=== PATIENT | male | born 1990 | race African-American/Black ===

== ENCOUNTER 2019-11-19 21:00 | Emergency (ER) | payer OTHER ==
--- NOTE | 2019-11-19 21:08 | PDOC ---
History of Present Illness - General Stated Complaint: COUGH Time Seen by Provider: 11/19/19 21:01 History Source: Patient Exam Limitations: No Limitations - History of Present Illness Initial Comments: 11/19/19 21:16 Pt is a 29 y/o male who presents to the ED with a cough. He has a family and wanted to be tested for COVID-19 despite having no known sick contacts, no potential COVID-19 contacts and he is afebrile currently. The patient has had no recent travel. The patient states that he does not think that he has COVID-19 and believes that he is low risk. He states he had a low grade fever at home of 100.4 at home. He has not taken anything for his symptoms. The patient denies any past medical history of allergies to medication. Past History - Past Medical History Allergies/Adverse Reactions: Allergies Allergy/AdvReac Type Severity Reaction Status Date / Time No Known Allergies Allergy Verified 11/19/19 21:06 Home Medications: Ambulatory Orders Oxycodone HCl/Acetaminophen [Percocet 5-325 mg Tablet] 1 - 2 combo PO Q4H PRN #20 tablet 02/21/15 Penicillin V Potassium [Pen Vee K -] 500 mg PO TID #21 tablet 02/21/15 Amoxicillin - [Amoxicillin 500mg Capsule -] 500 mg PO TID #21 capsule 03/15/15 Naproxen [Naprosyn -] 500 mg PO BID #14 tablet 03/15/15 - Immunization History Immunization Up to Date: Yes - Psycho Social/Smoking Cessation Hx Smoking History: Current every day smoker Have you smoked in the past 12 months: Yes Number of Cigarettes Smoked Daily: 0 Cigars Per Day: 3 Hx Alcohol Use: Yes (socially) Substance Use Type: Alcohol Review of Systems - Review of Systems Comments:: 11/19/19 21:14 - Review of Systems Able to Perform ROS?: Yes Constitutional: No: Fever, Chills, Loss of Appetite, Night Sweats, Weakness HEENTM: No: Eye Pain, Vision changes, Ear Pain, Throat Pain, Throat Swelling, Mouth Pain, Difficulty Swallowing Respiratory: No: Shortness of Breath, Wheezing, Sputum Production; Positive: cough Cardiac (ROS): No: Chest Pain, Chest Tightness, Palpitations, Irregular Heart Beat, Edema ABD/GI: No: Nausea, Vomiting, Abdominal Pain, diarrhea : No Dysuria, No Hematuria, No Frequency, No Urgency, No vaginal complaints Musculoskeletal: No: Muscle Pain, Back Pain, Joint Pain, Muscle Weakness, Neck Pain Integumentary: No: Lesions, Rash Neurological: No: Headache, Numbness, Tingling, Weakness, Speech Difficulties *Physical Exam - Physical Exam 11/19/19 21:15 - Physical Exam General Appearance: Nourished, Appropriately Dressed, No Distress HEENT: EOMI, Normal Voice, No Pharyngeal Erythema, No Muffled/Hoarse voice, No Nasal Congestion, No Rhinorrhea, Hearing Grossly Normal Neck: Supple, No Lymphadenopathy (R), No Lymphadenopathy (L), No Rigidity, No Decreased range of motion Respiratory/Chest: Lungs Clear, Normal Breath Sounds. No Respiratory Distress, No Accessory Muscle Use; good air entry bilaterally, no wheezes/rales/rhonchi Cardiovascular: Regular Rhythm, Regular Rate, S1, S2 Gastrointestinal/Abdominal: Normal Bowel Sounds, Soft. Non-tender, No Guarding, No Rebound, No Rigidity Musculoskeletal: Normal Inspection. No Decreased Range of Motion Extremity: Normal Capillary Refill, Normal Inspection Integumentary: Normal Color, Dry. No Rash Neurologic: semiconductor processor II-XII NML intact, Fully Oriented, Alert, Normal Mood/Affect, Normal Response Medical Decision Making - Medical Decision Making 11/19/19 21:02 Pt is a 29 y/o male who presents to the ED with a cough. He has a family and wanted to be tested for COVID-19 despite having no known sick contacts, no potential COVID-19 contacts and he is afebrile. The patient has had no recent travel. Plan: The patient has been made aware that he is low risk for COVID-19 infection and the [facility] is recommending that he does not get tested in the ED. He has been advised that he must call the [facility] upon going home for further instruction. We have instructed the patient to go home and self-quarantine until he speaks with the [facility] for further instruction. The patient has been provided the [facility] phone numbers. He understands and agrees with treatment and plan and he is stable for discharge. Discharge - Discharge Information Problems reviewed: Yes Clinical Impression/Diagnosis: Exposure to potential infection Condition: Stable - Follow up/Referral - Patient Discharge Instructions Patient Printed Discharge Instructions: DI for Accidental Exposure to Body Fluids Additional Instructions: Be sure to call the department of health for further instruction regarding q uarantine and possible COVID-19 testing. The numbers for [place] are below. Drink plenty of fluids and get plenty of rest. Take Tylenol or ibuprofen for fevers or pain. Return to the emergency department for high fevers, shaking chills, profuse vomiting or any other worsening symptoms. [facility]: [phone] Business Hours [phone] After hours - Post Discharge Activity Work/Back to School Note: Back to Work
[2019-11-19 21:12] VITALS: BP 142/89; PULSE 80; TEMP 98; BMI 26.9
== END 2019-11-19 21:19 | disposition home or self-care (01) ==
LOC: JERFT 21:00 → JER 21:00 → JERFT 21:19
DX: Z20.89 Contact with and (suspected) exposure to other communicable diseases (principal)
CPT/HCPCS: 99281-25

== ENCOUNTER 2022-02-11 10:09 | Emergency (ER) | payer OTHER ==
[2022-02-11 10:19] VITALS: BP 132/81; PULSE 84; TEMP 97.5; BMI 29.1
[2022-02-11 11:17] LABS: EPI CELLS 2 /uL (0-25.1); HYALINE CASTS 0 /uL (0-3.1); PH,URINE 5.5 (5.0-8.0); URINE APPEARANCE CLOUDY; URINE BACTERIA 2 /uL (0-1359); URINE BILIRUBIN NEGATIVE (NEGATIVE); URINE COLOR ORANGE; URINE GLUCOSE (UA) NEGATIVE (NEGATIVE); URINE KETONE NEGATIVE (NEGATIVE); URINE LEUK ESTERASE TRACE (NEGATIVE); URINE NITRITE NEGATIVE (NEGATIVE); URINE PROTEIN 1+ (NEGATIVE); URINE RBC 16552 /uL (0-23.9); URINE WBC 11 /uL (0-25.8)
[2022-02-11 12:36] LABS: BASO % 0.9 % (0-2.0); EOS % 1.8 % (0-4.5); HEMATOCRIT 48.1 % (35.4-49); HEMOGLOBIN 16.3 GM/dL (11.7-16.9); MCHC 33.8 g/dl (32.0-35.9); MEAN CELL VOLUME 85.8 fl (80-96); MEAN PLT VOLUME 8.9 fl (7.5-11.1); MONO % 9.8 % (3.8-10.2); NEUT % 33.5 % (42.8-82.8); PLATELET COUNT 203 10^3/uL (134-434); RBC 5.61 M/mm3 (4.00-5.60); RDW 13.3 % (11.9-15.9); WHITE BLOOD COUNT 2.9 K/mm3 (4.0-10.0)
[2022-02-11 13:02] LABS: CHLORIDE 108 mmol/L (98-107); SODIUM 141 mmol/L (136-145)
[2022-02-11 13:03] LABS: ALBUMIN 3.7 g/dl (3.4-5.0); ANION GAP 4 MMOL/L (8-16); CALCIUM 8.9 mg/dL (8.5-10.1); CO2 29 mmol/L (21-32); GLUCOSE,RANDOM 82 mg/dL (74-106)
[2022-02-11 13:05] LABS: BLOOD UREA NITROGEN 12.2 mg/dL (7-18)
[2022-02-11 13:07] LABS: BILIRUBIN,TOTAL 0.4 mg/dL (0.2-1); SGOT/AST 20 U/L (15-37); SGPT/ALT 31 U/L (13-61)
[2022-02-11 13:08] LABS: TOT PROT 6.5 g/dl (6.4-8.2)
[2022-02-11 13:09] LABS: ALK PHOS 96 U/L (45-117)
[2022-02-16 00:42] LABS: SYPHILIS W/ RPR CONF NON-REACTIVE (NONREACTIVE)
[2022-02-16 01:10] LABS: HIV INTERPRETATION NEGATIVE (NEGATIVE)
== END 2022-02-11 15:09 | disposition home or self-care (01) ==
LOC: JERFT 10:09
DX: R31.9 Hematuria, unspecified (principal)
CPT/HCPCS: 36415; 76775-TC; 80053; 81003; 82550; 82553; 85025; 86780; 87086; 87389; 87491; 87591; 99284-25

== ENCOUNTER 2023-08-28 08:41 | Emergency (ER) | payer OTHER ==
[2023-08-28 08:48] VITALS: BP 129/81; PULSE 84; RESP 18; TEMP 98.2; BMI 26.7
[2023-08-28 10:12] LABS: BASO % 0.9 % (0-2.0); EOS % 1.2 % (0-4.5); HEMOGLOBIN 16.7 GM/dL (11.7-16.9); LYMPH % 47.2 % (8-40); MCH 28.7 pg (25.7-33.7); MEAN CELL VOLUME 84.4 fl (80-96); MEAN PLT VOLUME 8.5 fl (7.5-11.1); MONO % 9.7 % (3.8-10.2); PLATELET COUNT 243 10^3/uL (134-434); RBC 5.81 M/mm3 (4.00-5.60); RDW 13.7 % (11.9-15.9); WHITE BLOOD COUNT 2.5 K/mm3 (4.0-10.0)
[2023-08-28 10:17] LABS: INR 0.95 (0.83-1.09)
[2023-08-28 10:50] LABS: POTASSIUM 4.5 mmol/L (3.5-5.1)
[2023-08-28 10:52] LABS: CALCIUM 9.2 mg/dL (8.5-10.1)
[2023-08-28 10:53] LABS: BLOOD UREA NITROGEN 12.9 mg/dL (7-18); MAGNESIUM 2.3 mg/dL (1.8-2.4)
[2023-08-28 10:56] LABS: CREATININE 1.1 mg/dL (0.55-1.3)
[2023-08-28 10:57] LABS: TOT PROT 7.2 g/dl (6.4-8.2)
[2023-08-28 10:58] LABS: BILIRUBIN,TOTAL 0.7 mg/dL (0.2-1)
== END 2023-08-28 11:55 | disposition home or self-care (01) ==
LOC: JER 08:41
DX: R00.2 Palpitations (principal); R41.0 Disorientation, unspecified; R00.0 Tachycardia, unspecified; R53.1 Weakness; R06.02 Shortness of breath; R51.9 Headache, unspecified; Z20.822 Contact with and (suspected) exposure to COVID-19
CPT/HCPCS: 0241U-QW; 36415; 71045-TC-FY; 80053; 83735; 84443; 84484; 85025; 85610; 93005; 93010; 99285-25